=== PATIENT | female | born 1960 | race Caucasian/White ===

== ENCOUNTER → 2016-04-29 | Outpatient (CLI) | payer BC ==
[~2016-04-29] MED LIST: FERROUS PO
--- NOTE | 2016-04-29 16:56 | MAMMOGRAPHY REPORT ---
BILATERAL DIGITAL SCREENING MAMMOGRAM TOMOSYNTHESIS WITH CAD: 04/29/2016 CLINICAL HISTORY: Routine screening. Patient has no complaints. TECHNIQUE: Breast tomosynthesis in addition to standard 2D mammography was performed. Current study was also evaluated with a Computer Aided Detection (CAD) system. COMPARISON: Comparison is made to exams dated: 03/21/2015 mammogram, 03/17/2013 mammogram, 03/20/2014 mammogram, 03/16/2012 mammogram, 12/25/2010 mammogram, and 12/19/2009 mammogram - [facility]. BREAST COMPOSITION: The tissue of both breasts is heterogeneously dense, which may obscure small ma sses. FINDINGS: There is a possible round 6 mm mass seen within the right subareolar breast, best seen on the MLO view. Recommend ultrasound and possible additional spot compression tomosynthesis views fo r further evaluation. The remainder of both breasts are stable compared to prior exams, without suspicious masses, calcifi cations, or areas of architectural distortion noted. Scattered benign-appearing right breast calcif ications are stable. Nodular asymmetries in the left lateral breast on the cc view are stable. IMPRESSION: ACR BI-RADS CATEGORY 0: INCOMPLETE EVALUATION: NEED ADDITIONAL IMAGING EVALUATION Possible right subareolar breast mass, for which additional imaging evaluation is recommended. The patient will be called to schedule an appointment. Approximately 10% of breast cancers are not detected with mammography. A negative mammographic repor t should not delay biopsy if a clinically suggestive mass is present. Evonne Marquez M.D. /:04/29/2016 16:44:13 Can Maker: Carlita TERRAZAS(R)(Symone), [facility] letter sent: Addl Imaging 0 BI-RADS Code: ACR BI-RADS Category 0: Incomplete Evaluation: Need Additional Imaging Evaluation
== END | disposition home or self-care (01) ==
LOC: C.MAMM 09:50
PROVIDERS: ATTEND Obstetrics & Gynecology
DX: Z12.31 Encounter for screening mammogram for malignant neoplasm of breast (principal)

== ENCOUNTER → 2016-05-06 | Outpatient (CLI) | payer BC ==
--- NOTE | 2016-05-06 14:09 | MAMMOGRAPHY REPORT ---
UNILATERAL RIGHT DIGITAL DIAGNOSTIC MAMMOGRAM TOMOSYNTHESIS AND TARGETED RIGHT ULTRASOUND: 05/06/2016 CLINICAL HISTORY: Callback from screening mammogram for possible right breast mass. TECHNIQUE: Breast tomosynthesis in addition to standard 2D mammography was performed. Right CC and MLO 2-D and tomosynthesis images were obtained. COMPARISON: Comparison is made to exams dated: 04/29/2016 mammogram, 03/21/2015 mammogram, 03/20/2014 mammogram, 03/17/2013 mammogram, 03/16/2012 mammogram, and 12/25/2010 mammogram - [facility]. BREAST COMPOSITION: The tissue of the right breast is heterogeneously dense, which may obscure smal l masses. FINDINGS: Spot compression views of the right breast demonstrate a lobulated circumscribed equal de nsity 8 mm mass seen within the right lateral breast on the CC spot compression view only. This lik mojgan correlates with the mass seen on the screening mammogram on the MLO view. No other masses are n oted on the additional views. No suspicious architectural distortion or other suspicious finding is evident. Targeted ultrasound was performed of the area of the mammographic mass. In the right breast at 9:00 , 2 cm from the nipple, there is an oval, gently lobulated, circumscribed anechoic mass with a few t hin internal septations, measuring 5 x 5 x 6 mm. This corresponds with the mammographic mass and is consistent with a benign cyst cluster. Incidentally noted are other cysts, including a 5 by 8 mm a nechoic benign simple cyst in the right breast at 9:00, 3 cm from the nipple, as well as anechoic ci rcumscribed benign simple cyst measuring 8 x 5 mm in the right breast at 11:00 periareolar region. Another anechoic benign simple cyst measuring 3 mm is seen within the right breast at 11:00, 2 cm fr om the nipple. No suspicious solid masses were evident. No abnormality was seen within the right s ubareolar breast. After the ultrasound exam, the patient reported an area of intermittent pain along her left inframam ry fold. I told the patient that a complete workup for focal pain includes mammograms and breast ultrasound, and offered to perform ultrasound of this region. Due to billing concerns, the patient did not want me to ultrasound the region. IMPRESSION: ACR BI-RADS CATEGORY 2: BENIGN, TARGETED ULTRASOUND ACR BI-RADS CATEGORY 2: BENIGN 1. Small 6 mm benign cyst cluster in the right breast at 9:00, which corresponds with the mammograph ic mass. Other small benign cysts were noted incidentally during the ultrasound exam. There is no mammographic or targeted sonographic evidence of malignancy. A 1 year screening mammogram is recomme nded. 2. The patient reported intermittent pain in the left inframammary fold region, but ultrasound was not performed due to patient request. Recommend clinical follow-up. The patient has been verbally notified of the results. Approximately 10% of breast cancers are not detected with mammography. A negative mammographic repor t should not delay biopsy if a clinically suggestive mass is present. Evonne Marquez M.D. ah/:05/06/2016 13:01:06 Program Research Specialist: Susana Swartz, [facility] letter sent: Normal 1/2 BI-RADS Code: ACR BI-RADS Category 2: Benign Ultrasound BI-RADS: ACR BI-RADS Category 2: Benign
== END | disposition home or self-care (01) ==
LOC: C.MAMM 09:41
PROVIDERS: ATTEND Obstetrics & Gynecology
DX: N60.01 Solitary cyst of right breast (principal)

== ENCOUNTER → 2016-09-02 | Outpatient (CLI) | payer BC | END | disposition home or self-care (01) | LOC: C.PAPS 13:25 | PROVIDERS: ATTEND Obstetrics & Gynecology | DX: Z01.419 Encounter for gynecological examination (general) (routine) without abnormal findings (principal) ==

== ENCOUNTER → 2016-12-10 | Outpatient (CLI) | payer BC ==
[2016-12-10 13:59] LABS: THYROID STIMULATING HORMONE < 0.005 uIu/ml (0.300-4.500)
== END | disposition home or self-care (01) ==
LOC: C.LAB1850 11:21
PROVIDERS: ATTEND Internal Medicine Endocrinology, Diabetes & Metabolism
DX: E05.90 Thyrotoxicosis, unspecified without thyrotoxic crisis or storm (principal)

== ENCOUNTER → 2017-03-22 | Outpatient (CLI) | payer BC ==
[2017-03-22 13:58] LABS: THYROID STIMULATING HORMONE 0.782 uIu/ml (0.300-4.500)
== END | disposition home or self-care (01) ==
LOC: C.LAB1850 11:59
PROVIDERS: ATTEND Internal Medicine Endocrinology, Diabetes & Metabolism
DX: E05.90 Thyrotoxicosis, unspecified without thyrotoxic crisis or storm (principal)

== ENCOUNTER → 2017-04-26 | Outpatient (CLI) | payer OTHER | LOC: C.LAB1850 10:41 | PROVIDERS: ATTEND Internal Medicine Endocrinology, Diabetes & Metabolism | DX: E05.00 Thyrotoxicosis with diffuse goiter without thyrotoxic crisis or storm (principal) ==

== ENCOUNTER → 2017-05-03 | Outpatient (CLI) | payer OTHER ==
--- NOTE | 2017-05-04 14:38 | MAMMOGRAPHY REPORT ---
BILATERAL DIGITAL SCREENING MAMMOGRAM TOMOSYNTHESIS WITH CAD: 05/03/2017 CLINICAL HISTORY: Routine screening. TECHNIQUE: Breast tomosynthesis in addition to standard 2D mammography was performed. Current study was also evaluated with a Computer Aided Detection (CAD) system. COMPARISON: Comparison is made to exams dated: 04/29/2016 mammogram, 03/21/2015 mammogram, 03/20/2014 mammogram, 03/17/2013 mammogram, 03/16/2012 mammogram, and 12/25/2010 mammogram - [facility]. BREAST COMPOSITION: The tissue of both breasts is heterogeneously dense, which may obscure small mas ses. FINDINGS: The parenchymal pattern is similar to prior mammograms. There is stable nodular asymmetry in the slightly superior far posterior left breast on the MLO view. No developing mass, architectur al distortion or cluster of suspicious microcalcifications is seen in either breast. IMPRESSION: ACR BI-RADS CATEGORY 2: BENIGN There is no mammographic evidence of malignancy. A 1 year screening mammogram is recommended. The pa tient will receive written notification of the results. Approximately 10% of breast cancers are not detected with mammography. A negative mammographic report should not delay biopsy if a clinically suggestive mass is present. Kaylee Garcia M.D. ay/:05/03/2017 16:56:42 [place]: Carlita TERRAZAS(Shaina)(M), [facility] letter sent: Normal 1/2 BI-RADS Code: ACR BI-RADS Category 2: Benign
== END | disposition home or self-care (01) ==
LOC: C.MAMM 09:36
PROVIDERS: ATTEND Obstetrics & Gynecology
DX: Z12.31 Encounter for screening mammogram for malignant neoplasm of breast (principal)

== ENCOUNTER → 2017-06-25 | Outpatient (CLI) | payer OTHER | END | disposition home or self-care (01) | LOC: C.LAB1850 11:39 | PROVIDERS: ATTEND Internal Medicine Endocrinology, Diabetes & Metabolism | DX: E05.00 Thyrotoxicosis with diffuse goiter without thyrotoxic crisis or storm (principal) ==

== ENCOUNTER → 2017-07-28 | Outpatient (CLI) | payer OTHER ==
[2017-07-28 17:02] LABS: ALBUMIN 3.8 gm/dl (3.4-5.0); BLOOD UREA NITROGEN 15 mg/dl (7-18); CALCIUM 8.5 mg/dl (8.5-10.1); CARBON DIOXIDE 28 mmol/L (21-32); CREATININE 0.81 mg/dl (0.60-1.20); GLUCOSE 98 mg/dl (70-99); POTASSIUM 3.9 mmol/L (3.5-5.1); SODIUM 140 mmol/L (136-145)
[2017-07-28 17:12] LABS: ALKALINE PHOSPHATASE 106 U/L (45-117); ALT/SGPT 24 U/L (12-78); AST/SGOT 15 U/L (15-37); TOTAL PROTEIN 7.3 gm/dl (6.4-8.2)
== END | disposition home or self-care (01) ==
LOC: C.LAB1850 15:25
PROVIDERS: ATTEND Internal Medicine Endocrinology, Diabetes & Metabolism
DX: E05.90 Thyrotoxicosis, unspecified without thyrotoxic crisis or storm (principal); I16.0 Hypertensive urgency

== ENCOUNTER → 2017-10-29 | Outpatient (CLI) | payer OTHER ==
[2017-10-29 09:38] LABS: BLOOD UREA NITROGEN 14 mg/dl (7-18); CALCIUM 8.5 mg/dl (8.5-10.1); CARBON DIOXIDE 28 mmol/L (21-32); CHOLESTEROL 180 mg/dl (0-200); CREATININE 0.74 mg/dl (0.60-1.20); GLUCOSE 89 mg/dl (70-99); LDL CHOLESTEROL CALCULATED 86 mg/dl; POTASSIUM 4.1 mmol/L (3.5-5.1); SODIUM 140 mmol/L (136-145)
== END | disposition home or self-care (01) ==
LOC: C.LAB1850 07:36
PROVIDERS: ATTEND Family Medicine
DX: Z00.00 Encounter for general adult medical examination without abnormal findings (principal); I10 Essential (primary) hypertension; Z13.220 Encounter for screening for lipoid disorders

== ENCOUNTER → 2017-11-18 | Outpatient (CLI) | payer OTHER | END | disposition home or self-care (01) | LOC: C.PAPS 18:15 | PROVIDERS: ATTEND Obstetrics & Gynecology | DX: Z12.4 Encounter for screening for malignant neoplasm of cervix (principal) ==